=== PATIENT | female | born 1990 ===

== ENCOUNTER 2024-07-30 07:31 | Day surgery (SDC) | payer OTHER ==
[~2024-07-30] VITALS: Ht 160 cm; Wt 113.4 kg
[2024-07-30] VITALS (11 sets, daily range): BP systolic 132–191; BP diastolic 70–99
[2024-07-30] MEDS ORDERED: GABA300 PO (08:16)
[2024-07-30] MEDS ORDERED: HYDCHL25 PO (08:17)
[2024-07-30] MEDS ORDERED: METF500 PO (08:18)
[2024-07-30] MEDS ORDERED: INSULANPEN SC (08:19)
[2024-07-30] MEDS ORDERED: JARDIANCE25 MG PO (08:21)
[2024-07-30] MEDS ORDERED: ATOR40TA PO (08:22)
[2024-07-30] MEDS ORDERED: Midazolam HCl 1MG / ML 2ML Vial ONE ×2 (11:00→11:37)
[2024-07-30] MEDS ORDERED: Heparin Sodium 1000 Units/ML 10ML MDV ONE ×4 (11:00→12:00)
[2024-07-30] MEDS ORDERED: NS 1,000 ML IV ONE ×2 (11:00→11:06)
[2024-07-30] MEDS ORDERED: FentaNYL Citrate 50 MCG/ML 2 ML Injection ONE ×2 (11:00→11:37)
[2024-07-30] MEDS ORDERED: Nitroglycerin 2 MG/20 ML BTL ONE (11:06)
[2024-07-30] MEDS ORDERED: NS 250 ML IV ONE (11:06)
[2024-07-30] MEDS ORDERED: HydrALAZINE HCl 20 MG / ML 1ML Vial ONE (11:40)
[2024-07-30] MEDS ORDERED: NS 500 ML IV ONE (12:00)
[2024-07-30] MEDS ORDERED: Protamine Sulfate 50 MG Amp ONE (12:22)
[2024-07-30] MEDS ORDERED: Labetalol HCL 5 MG/ML 4ML Injection (Single Dose) ONE (12:38)
[2024-07-30] MEDS ORDERED: Clopidogrel Bisulfate 300 MG TABLET ONE (12:53)
[2024-07-30] MEDS ORDERED: Labetalol HCL 5 MG/ML 4ML Injection (Single Dose) IV ONE (13:30)
--- NOTE | 2024-07-30 14:35 | NUR ---
Pt sat up to 30 degrees and given snacks. pt talking on the phone. R groin is soft and non tender. Family at bedside.
[2024-07-30] MEDS ORDERED: ASPI81CH PO (14:38)
[2024-07-30] MEDS ORDERED: CLOP75 PO (14:38)
--- NOTE | 2024-07-30 14:43 | NUR ---
PATIENT BACK TO RECOVERY ROOM AT 1310 S/P LEFT LOWER EXTREMITY ANGIOGRAM WITH INTERVENTIONS. STENT PLACED TO LEFT SFA. PT AWAKE, C/O BEING COLD, NO OTHER COMPLAINTS. BEAR HUGGER PLACED. PT HYPERTENSIVE. RIGHT GROIN SITE REVIEWED WITH FIFI/. SMALL KNOT NOTED WHICH IS UNCHANGED AND STABLE PER JULY AND WAS REVIEWED STABLE BY DR GIBSON. DRSG DRY AND INTACT, PT DENIES TENDERNESS. POST PULSES UNCHAGED. 1+ TO RIGHT DP, DOPPLER PRESENT TO RIGHT PT AND LEFT DP/PT. DR ALFONSO IN TO CHECK ON PT AT 1333, UPDATE GIVEN. LABETALOL 10MG GIVEN IV AT [address] GIBSON WITH GOOD EFFECT. LOADING DOSE OF PLAVIX WAS GIVEN. PLAVIX AND ASPIRIN CALLED IN TO [facility] PER PT REQUEST.
--- NOTE | 2024-07-30 15:41 | NUR ---
PATIENT UP TO RESTROOM AT 1515. RIGHT GROIN REMAINS STABLE W/O CHANGE AFTER BEING UP TO RESTROOM. BLE PULSES/CIRC CHECK W/O CHANGE. PT STATES HER FEET "FEEL BETTER", OVERALL WITH IMPROVED COLOR. PT CLAIRE FOOD/FLUIDS. NOTE SENT HOME WITH PATIENT TO RESTRICT LIFTING AT WORK FOR ONE WEEK. VERBAL AND WRITTEN DISCHARGE INFORMATION GIVEN TO PATIENT AND PT'S FRIEND WITH CLEAR UNDERSTANDING. PT ESCORTED OUT VIA WHEELCHAIR AT 1535 IN STABLE CONDITION.
== END 2024-07-30 16:24 | disposition home or self-care (01) ==
LOC: MHTC 07:31
DX: E11.52 Type 2 diabetes mellitus with diabetic peripheral angiopathy with gangrene (principal); I70.262 Atherosclerosis of native arteries of extremities with gangrene, left leg; L97.529 Non-pressure chronic ulcer of other part of left foot with unspecified severity; F17.210 Nicotine dependence, cigarettes, uncomplicated; Z79.84 Long term (current) use of oral hypoglycemic drugs; Z79.899 Other long term (current) drug therapy
CPT/HCPCS: 37226; 37252; 75625; 75716; 75774; 76937; 82947; 99152; 99153; A9270; C1725; C1753; C1760; C1769; C1874; C1887; C1894; J0360; J1644; J2250; J2720; J3010; J7030; J7040; J7050; Q9967